=== PATIENT | male | born 1945 | race Caucasian/White ===

== ENCOUNTER → 2022-03-21 | Emergency (ER) | payer OTHER ==
[~2022-03-21] VITALS: Ht 177.8 cm; Wt 95.3 kg
[~2022-03-21] MED LIST: ATORVASTATIN CA20 MG PO; BUSPIRONE HCL15 MG PO; BUSPIRONE HCL30 MG PO; KLONOPIN0.5 MG/TAB PO; PAXIL20 MG PO; REMERON15 MG PO; RESTORIL15 MG PO; SYNTHROID50 MCG PO; TRAM1TAB98 PO
== END | disposition left against medical advice (07) ==
LOC: ER 12:53
DX: K62.5 Hemorrhage of anus and rectum (principal); Z88.0 Allergy status to penicillin; E78.00 Pure hypercholesterolemia, unspecified; E03.9 Hypothyroidism, unspecified; I10 Essential (primary) hypertension; F41.9 Anxiety disorder, unspecified

== ENCOUNTER 2024-05-19 11:47 | Emergency (ER) | payer OTHER ==
[~2024-05-19] VITALS: Ht 172.7 cm; Wt 72.6 kg
[~2024-05-19 11:47] MED LIST changes: +CIPRO500 MG PO; +CLONAZEPAM0.5 MG PO; +GABAPENTIN600 MG PO; +METRONIDAZOLE500 MG PO; +PROTONIX40 MG PO; +SERTRALINE HCL50 MG PO; +TELMISARTAN80 MG PO; +VSL#3 112.5B1 EACH PO; +ZOLPIDEM TARTRA10 MG PO
[2024-05-19] MEDS ORDERED: LOSARTAN POTASS50 MG (12:13)
[2024-05-19] MEDS ORDERED: SYNTHROID175 MCG (12:14)
[2024-05-19] MEDS ORDERED: ORPHENADRINE CITRATE 30 MG/ML AMPUL IM ONE (12:45)
[2024-05-19] MEDS ORDERED: KETOROLAC TROMETHAMINE 60 MG VIAL IM ONE (12:45)
== END 2024-05-19 19:26 | disposition home or self-care (01) ==
LOC: ER 11:47
DX: M54.50 Low back pain, unspecified (principal); Z88.0 Allergy status to penicillin
CPT/HCPCS: 72131; 96372; 99284; J1885; J2360

== ENCOUNTER 2025-04-06 11:06 | Emergency (ER) | payer OTHER ==
[~2025-04-06] VITALS: Ht 177.8 cm; Wt 86.2 kg
[~2025-04-06 11:06] MED LIST changes: +LOSARTAN POTASS50 MG; +SYNTHROID175 MCG
[2025-04-06] MEDS ORDERED: 0.9 % SODIUM CHLORIDE 1,000 ML IV STA (12:00)
[2025-04-06 13:07] LABS: BASO % 0.2 % (0.1-1.2); EOS # 0.11 (0.04-0.54); EOS % 1.3 % (0.7-7.0); LYMPH # 1.90 (1.18-3.74); LYMPH % 22.5 % (19.3-53.1); MEAN PLATELET VOLUME 10.30 fl (9.4-12.4); MONO # 0.64 (0.24-0.82); MONO % 7.6 % (4.7-12.5); NEUT # 5.76 (1.56-6.13); NEUT % 68.2 % (34.0-71.1); RED CELL DISTRIBUTION WIDTH 11.9 % (11.6-14.4)
[2025-04-06 13:36] LABS: ALT/SGPT 24.0 U/L (12-78); AST/SGOT 14.0 U/L (15-37); BILIRUBIN TOTAL 0.73 mg/dL (0.3-1.2); BUN CREA RATIO 13.0 (7.0-25.0); CREATININE SERUM 1.05 mg/dL (0.70-1.30); GFR 68.31; GLOBULINA 3.6 G/DL (2.4-3.5); GLUCOSE FASTING 127.0 mg/dL (65-100); OSMOLALITY SERUM 281.0 MOSM/KG (275-295)
[2025-04-06 19:06] LABS: URINE APPEARANCE Clear; URINE BILIRRUBIN Negative (NEGATIVE); URINE BLOOD Negative; URINE COLOR Yellow; URINE GLUCOSE Negative (NEGATIVE); URINE KETONE Negative (NEGATIVE); URINE LEUKOCYTE Trace; URINE NITRATE Negative; URINE PROTEIN Negative (NEGATIVE); URINE UROBILINOGEN 0.2 E.U./dl
[2025-04-06 19:10] LABS: URINE BACTERIA 7.1 uL (0.0-1933); URINE WBC 3.2 uL (0.0-23.2)
[2025-04-06 19:13] LABS: URINE CAST 0.00 uL (0.0-1.40); URINE EPITHELIAL CELLS 0.6 uL (0.0-38.8); URINE RBC 0.8 uL (0.0-20.8)
== END 2025-04-06 20:02 | disposition home or self-care (01) ==
LOC: ER 11:06
PROVIDERS: General Practice
DX: R33.9 Retention of urine, unspecified (principal); I10 Essential (primary) hypertension; Z88.0 Allergy status to penicillin
CPT/HCPCS: 36415; 96365; 96366; 99282; J7030

== ENCOUNTER 2025-04-15 14:21 | Emergency (ER) | payer OTHER ==
[~2025-04-15] VITALS: Ht 175.3 cm; Wt 86.2 kg
[2025-04-15 15:28] VITALS: BP 133/82; O2SAT 97
== END 2025-04-15 18:25 | disposition home or self-care (01) ==
LOC: ER 14:21
DX: L98.9 Disorder of the skin and subcutaneous tissue, unspecified (principal); E11.9 Type 2 diabetes mellitus without complications; Z88.0 Allergy status to penicillin